=== PATIENT | female | born 2000 | race Caucasian/White ===

== ENCOUNTER 2024-06-26 09:25 | Emergency (ER) | payer MEDICAID ==
[~2024-06-26] VITALS: Ht 157.5 cm; Wt 81.8 kg
[2024-06-26 09:38] VITALS: BP 108/77; PULSE 72; RESP 18; TEMP 98.1; O2SAT 100
[2024-06-26] MEDS: BACITRACIN 28 GM OINTMENT TP ONE (10:37)
[2024-06-26] MEDS: PERTUSS(ACELL),DIPH,TET/PF 0.5 ML SYRINGE [ADULT] IM. ONE (10:37)
== END 2024-06-26 10:49 | disposition home or self-care (01) ==
LOC: EMS 09:28
DX: S61.012A Laceration without foreign body of left thumb without damage to nail, initial encounter (principal); Z23 Encounter for immunization; W26.0XXA Contact with knife, initial encounter; Y93.G3 Activity, cooking and baking; Y92.89 Other specified places as the place of occurrence of the external cause; Y99.8 Other external cause status
CPT/HCPCS: 90471; 90715; 99283